=== PATIENT | male | born 1945 | race Caucasian/White ===

== ENCOUNTER → 2017-10-08 09:42 | Outpatient (CLI) | payer MEDICARE, OTHER | END | disposition home or self-care (01) | LOC: D.RAD 09:30 | DX: K22.4 Dyskinesia of esophagus (principal); R13.12 Dysphagia, oropharyngeal phase ==

== ENCOUNTER → 2017-10-12 12:49 | Outpatient (CLI) | payer MEDICARE, OTHER | END | disposition home or self-care (01) | LOC: D.RAD 12:49 | DX: K22.4 Dyskinesia of esophagus (principal); R13.12 Dysphagia, oropharyngeal phase ==

== ENCOUNTER → 2017-12-09 12:46 | Outpatient (CLI) | payer MEDICARE, OTHER | END | disposition home or self-care (01) | LOC: D.RAD 12:46 | DX: R13.12 Dysphagia, oropharyngeal phase (principal) ==